=== PATIENT | female | born 1990 | race African-American/Black ===

== ENCOUNTER → 2017-08-10 | Outpatient (CLI) | payer OTHER ==
[2017-08-10 11:08] LABS: BASO % 0 % (0-3); EOS % 2 % (0-3); HEMATOCRIT 38.7 % (36.0-47.0); HEMOGLOBIN 13.1 g/dL (12.0-15.5); LYMPH # 1.7 x10^3/uL (1.0-4.8); LYMPH % 19 % (24-48); MEAN CORPUSCULAR HEMOGLOBIN 30 pg (25-35); MEAN CORPUSCULAR HGB CONC 34 g/dL (31-37); MEAN CORPUSCULAR VOLUME 88 fL (79-100); MONO % 4 % (0-9); NEUT % 75 % (31-73); PLATELET COUNT 200 x10^3/uL (140-400); RED BLOOD COUNT 4.38 x10^6/uL (3.50-5.40); RED CELL DISTRIBUTION WIDTH 14.1 % (11.5-14.5)
[2017-08-10 11:36] LABS: FREE T4 1.22 ng/dL (0.76-1.46)
[2017-08-10 11:55] LABS: SICKLE CELL SCREEN NEGATIVE
[2017-08-11 01:11] LABS: HIV ANTIBODY Non Reactive (Non Reactive); RPR REFLEX Non Reactive (Non Reactive)
== END | disposition home or self-care (01) ==
LOC: LAB 10:15
PROVIDERS: ATTEND Obstetrics & Gynecology
DX: Z32.01 Encounter for pregnancy test, result positive (principal); O34.219 Maternal care for unspecified type scar from previous cesarean delivery
CPT/HCPCS: 36415; 84439; 84443; 85025; 85660; 86593; 86701; 86702; 86703; 86762; 86900; 86901; 87340; 87341; 87535

== ENCOUNTER → 2017-09-07 | Outpatient (CLI) | payer OTHER ==
--- NOTE | 2017-09-07 16:08 | RAD ---
Indication assess size and dates. Obstetrical ultrasound examination was performed. No prior imaging is available. There is a single viable IUP. heart rate of 139 was documented. The developing placenta is predominantly fundal and anterior. The amount of amniotic fluid appears normal and calculated index is 11. The maternal cervix was not well demonstrated. The biparietal diameter of 4.5 cm, head circumference of 17 cm, abdominal circumference of 14.6 cm and femoral length of 3.1 cm are compatible with a gestational age of approximately 19 weeks 5 days. By sonographic analysis the expected date of confinement is 01/27/2017. The estimated weight is approximately 310 g. The current presentation is breech. There was a 4 chambered heart. The visualized umbilical cord appeared normal. The bladder, stomach, kidneys, spine and visualized brain appeared normal although the spine was not well imaged on this exam. IMPRESSION: Single viable intrauterine fetus of approximately 19 weeks 5 days gestation
== END | disposition home or self-care (01) ==
LOC: US 10:03
PROVIDERS: ATTEND Obstetrics & Gynecology
DX: O34.219 Maternal care for unspecified type scar from previous cesarean delivery (principal)
CPT/HCPCS: 76805; 76817

== ENCOUNTER 2017-12-13 14:14 | Observation (INO) | payer OTHER ==
[2017-12-13 14:41] LABS: AMNIO PT NEGATIVE; NEG OBC AMNIO NEG; POS OBC AMNIO POS
[2017-12-13] MEDS ORDERED: IV RINGERS,LACTATED 1000ML 1,000 ML IV ×2 (14:45)
== END 2017-12-13 16:50 | disposition home or self-care (01) ==
LOC: 3 SO LND 14:14
DX: O26.893 Other specified pregnancy related conditions, third trimester (principal); R10.9 Unspecified abdominal pain; M54.9 Dorsalgia, unspecified; Z3A.33 33 weeks gestation of pregnancy
CPT/HCPCS: 36415; 76819; 84112; G0378; G0379